=== PATIENT | male | born 1960 | race Caucasian/White ===

== ENCOUNTER → 2023-06-22 | Outpatient (CLI) | payer BC ==
[~2023-06-22] VITALS: Ht 177.8 cm; Wt 99.8 kg
[~2023-06-22] MED LIST: ASPI81CH33 PO; ATOR40TA75 PO; FINA5TAB2 PO; LIDOCAINE 1% MDV 20ML VIAL As Ordered ONE; LIDOCAINE W/EPINEPHRINE 1% 20ML VIAL As Ordered ONE; LISI5TAB11 PO; METO1TAB33 PO; MIDAZOLAM INJ 2MG/2ML VIAL As Ordered ONE; NS 1,000 ML IV SCH; OMEP40CA5 PO; ceFAZolin 2 GM/D5W 50 ML IV BAG As Ordered ONE; ceFAZolin SOD 2 GM in IV 1 EA IV ONE; fentaNYL 100 MCG/2 ML INJECTION As Ordered ONE
[2023-06-22 08:30] VITALS: TEMP 97.3
[2023-06-22 11:45] VITALS: BP 152/85; O2SAT 97
== END ==
LOC: M IRPRO 08:19
PROVIDERS: ATTEND Specialist
DX: C64.9 Malignant neoplasm of unspecified kidney, except renal pelvis (principal)
CPT/HCPCS: 36561; 99152; 99153; J0690; J2250; J3010

== ENCOUNTER 2024-02-14 00:16 | Inpatient (IN) | payer BC, MEDICARE ==
[~2024-02-14 00:16] MED LIST changes: +B-122500 PO; +GABA-1171 PO; +LEVO-89 PO; +LEVO25TA5 PO; -LIDOCAINE 1% MDV 20ML VIAL As Ordered ONE; -LIDOCAINE W/EPINEPHRINE 1% 20ML VIAL As Ordered ONE; -MIDAZOLAM INJ 2MG/2ML VIAL As Ordered ONE; +NOXI1TAB PO; -NS 1,000 ML IV SCH; +ONDA-284 PO; +PRED20TA PO; +TRIA1OI TOP; +VITA40TA PO; -ceFAZolin 2 GM/D5W 50 ML IV BAG As Ordered ONE; -ceFAZolin SOD 2 GM in IV 1 EA IV ONE; -fentaNYL 100 MCG/2 ML INJECTION As Ordered ONE
[2024-02-14 02:45] VITALS: BP 128/75; TEMP 97.5; O2SAT 100
[2024-02-14] MEDS ORDERED: MOM 30ML SUSPENSION UDC PO PRN (03:00)
[2024-02-14] MEDS ORDERED: ACETAMINOPHEN TAB 650MG DOSE (2X325MG) PO PRN (03:00)
[2024-02-14] MEDS ORDERED: SYNT100T PO (04:54)
[2024-02-14 05:13] LABS: VENOUS BASE EXCESS -12.8 (-2.0-2.0); VENOUS HCO3 14.5 MMOL/L (23.0-27.0); VENOUS O2 SATURATION 86.7 % (60.0-80.0); VENOUS PARTIAL PRESSURE O2 53.2 mmHg (30.0-50.0); VENOUS PH 7.189 UNITS (7.330-7.430); VENOUS STANDARD HCO3 14.2 MMOL/L; VENOUS TOTAL CO2 15.7 MMOL/L (24.0-28.0)
[2024-02-14 05:24] LABS: HEMATOCRIT 28.8 % (42.0-52.0); HEMOGLOBIN 9.3 g/dl (13.5-17.5); MEAN CORPUSCULAR HEMOGLOBIN 32.1 pg (27.0-33.0); MEAN CORPUSCULAR HGB CONC 32.3 g/dl (32.0-36.5); MEAN CORPUSCULAR VOLUME 99.3 fl (80.0-96.0); PLATELET COUNT, AUTOMATED 197 10^3/uL (150-450); WHITE BLOOD COUNT 11.5 10^3/uL (4.0-10.0)
[2024-02-14 05:41] LABS: CORTISOL AM 23.3 UG/DL (4.3-22.4); INR 1.13; PROTHROMBIN TIME 14.2 SECONDS (12.5-14.5)
[2024-02-14 05:49] LABS: ALBUMIN 3.8 G/DL (3.2-5.2); BILIRUBIN,TOTAL 0.5 MG/DL (0.3-1.2); CREATININE FOR GFR 5.65 MG/DL (0.70-1.30); GLOMERULAR FILTRATION RATE 10.8 (>49); POTASSIUM SERUM 6.3 MMOL/L (3.5-5.1)
[2024-02-14] MEDS ORDERED: GABA-1171 PO (06:10)
[2024-02-14] MEDS: ALBUTEROL SULFATE 2.5MG/0.5ML INH NEB SOLN NEB ONE (06:11)
[2024-02-14] MEDS ORDERED: CETI-24 PO (06:12)
[2024-02-14] MEDS ORDERED: ASPI81TA26 PO (06:12)
[2024-02-14] MEDS ORDERED: SODIUM BICARBONATE 8.4% INJ 50ML SYRINGE IV STA (06:13)
[2024-02-14] MEDS ORDERED: HOME MED LIST COMPLETE! XX SCH (06:15)
[2024-02-14] MEDS: DEXTROSE 50% 50ML SYRINGE IV STA (06:36)
[2024-02-14] MEDS: HumuLIN R (REGULAR) INSULIN (NovoLIN R) **100U/ML** PER UNIT IV STA (06:37)
[2024-02-14] MEDS: CALCIUM GLUCONATE 1,000 MG in D5W MINI-BAG PLUS 100 ML IV SCH (06:37)
[2024-02-14] MEDS: PATIROMER SORBITEX CALCIUM 8.4 GM POWDER PACKET (VELTASSA) PO ONE (06:50)
[2024-02-14] MEDS: LEVOTHYROXINE 100MCG TABLET (0.1MG) PO SCH (06:51)
[2024-02-14 08:00] VITALS: BP 133/70; TEMP 97.7; O2SAT 93
[2024-02-14] MEDS: SODIUM BICARBONATE 8.4% INJ 50ML SYRINGE IV STA (08:28)
[2024-02-14] MEDS: SODIUM BICARBONATE 150 MEQ in D5W 1,000 ML IV SCH (08:29)
[2024-02-14] MEDS: HEPARIN SOD (PORCINE) 5000UNITS/ML 1ML VIAL/SYRINGE SQ SCH ×2 (08:33→13:47)
[2024-02-14] MEDS: DOCUSATE SODIUM 100MG CAPSULE PO SCH (08:37)
[2024-02-14 08:58] LABS: CALCIUM LEVEL 8.7 MG/DL (8.3-10.6); CREATININE FOR GFR 5.5 MG/DL (0.70-1.30); GLOMERULAR FILTRATION RATE 11.2 (>49); POTASSIUM SERUM 5.7 MMOL/L (3.5-5.1)
[2024-02-14 12:00] VITALS: BP 134/75; TEMP 97.7; O2SAT 100
[2024-02-14 12:47] LABS: CREATININE FOR GFR 5.35 MG/DL (0.70-1.30); GLOMERULAR FILTRATION RATE 11.5 (>49); POTASSIUM SERUM 4.7 MMOL/L (3.5-5.1)
[2024-02-14 13:13] LABS: PHOSPHORUS LEVEL 4.9 MG/DL (2.4-5.1)
[2024-02-14] MEDS: METOPROLOL SUCC (TopROL XL) 100MG *XL* TAB PO SCH (13:48)
[2024-02-14] MEDS: CETIRIZINE (ZyrTEC) 10 MG TAB PO SCH (13:48)
[2024-02-14] MEDS: FINASTERIDE 5MG TAB PO SCH (13:48)
[2024-02-14] MEDS: ASPIRIN 81MG ENTERIC TABLET PO SCH (13:48)
[2024-02-14] MEDS: PANTOPRAZOLE 40MG TAB (PROTONIX) PO SCH (13:48)
[2024-02-14] MEDS: ATORVASTATIN 20 MG TAB PO SCH (13:49)
[2024-02-14 16:00] VITALS: BP 115/63; TEMP 97.5; O2SAT 98
[2024-02-14 20:59] VITALS: BP 119/57; TEMP 98.7; O2SAT 99
[2024-02-14] MEDS: GABAPENTIN 100 MG CAP PO SCH (21:21)
[2024-02-15] VITALS (7 sets, daily range): BP systolic 111–142; BP diastolic 57–73; TEMP 97.5–98.4; O2SAT 96–98
[2024-02-15 05:31] LABS: HEMATOCRIT 23.7 % (42.0-52.0); HEMOGLOBIN 7.9 g/dl (13.5-17.5); MEAN CORPUSCULAR HEMOGLOBIN 32.1 pg (27.0-33.0); MEAN CORPUSCULAR HGB CONC 33.3 g/dl (32.0-36.5); MEAN CORPUSCULAR VOLUME 96.3 fl (80.0-96.0); PLATELET COUNT, AUTOMATED 170 10^3/uL (150-450); RED BLOOD COUNT 2.46 10^6/uL (4.30-6.10); WHITE BLOOD COUNT 7.8 10^3/uL (4.0-10.0)
[2024-02-15 06:00] LABS: CREATININE FOR GFR 4.96 MG/DL (0.70-1.30); GLOMERULAR FILTRATION RATE 12.6 (>49); POTASSIUM SERUM 4.1 MMOL/L (3.5-5.1)
[2024-02-15 13:27] LABS: APPEARANCE, URINE HAZY (CLEAR); BACTERIA, URINE AUTO 1+ (NEGATIVE); BILIRUBIN, URINE AUTO NEGATIVE (NEGATIVE); BLOOD, URINE BLOOD 2+ (NEGATIVE); COLOR, URINE YELLOW (YELLOW); GLUCOSE, URINE (UA) AUTO NEGATIVE (NEGATIVE); KETONE, URINE AUTO NEGATIVE (NEGATIVE); LEUKOCYTE ESTERASE, URINE AUTO 3+ (NEGATIVE); NITRITE, URINE AUTO NEGATIVE (NEGATIVE); PROTEIN, URINE AUTO 1+ mg/dL (NEGATIVE); RBC, URINE AUTO 46 /HPF (0-3); SPECIFIC GRAVITY URINE AUTO 1.009 (1.002-1.035); SQUAMOUS EPITHELIAL CELL UR AU 0 /HPF (0-6); UROBILINOGEN, URINE AUTO 0.2 mg/dL (0.0-2.0); WBC, URINE AUTO 92 /HPF (0-3)
[2024-02-15 13:57] LABS: HEMATOCRIT 24.9 % (42.0-52.0); HEMOGLOBIN 8.5 g/dl (13.5-17.5)
[2024-02-16 03:51] VITALS: BP 148/80; TEMP 97.1; O2SAT 97
[2024-02-16 06:03] LABS: HEMATOCRIT 23.2 % (42.0-52.0); HEMOGLOBIN 7.8 g/dl (13.5-17.5); MEAN CORPUSCULAR HGB CONC 33.6 g/dl (32.0-36.5); MEAN CORPUSCULAR VOLUME 95.1 fl (80.0-96.0); PLATELET COUNT, AUTOMATED 162 10^3/uL (150-450); RED BLOOD COUNT 2.44 10^6/uL (4.30-6.10); WHITE BLOOD COUNT 6.5 10^3/uL (4.0-10.0)
[2024-02-16 06:27] LABS: CALCIUM LEVEL 7.4 MG/DL (8.3-10.6); CREATININE FOR GFR 4.5 MG/DL (0.70-1.30); GLOMERULAR FILTRATION RATE 14.1 (>49); POTASSIUM SERUM 3.5 MMOL/L (3.5-5.1)
[2024-02-16 07:38] VITALS: BP 150/70; TEMP 97.2; O2SAT 95
[2024-02-16 08:03] VITALS: BP 150/70
== END 2024-02-16 11:47 | disposition home or self-care (01) | DRG 425 ==
LOC: M PCU 02:40
PROVIDERS: ADMIT Hospitalist; ATTEND Internal Medicine
DX: E87.5 Hyperkalemia (principal); N17.9 Acute kidney failure, unspecified; E87.20 Acidosis, unspecified; G62.0 Drug-induced polyneuropathy; D64.81 Anemia due to antineoplastic chemotherapy; C64.1 Malignant neoplasm of right kidney, except renal pelvis; I12.9 Hypertensive chronic kidney disease with stage 1 through stage 4 chronic kidney disease, or unspecified chronic kidney disease; N40.0 Benign prostatic hyperplasia without lower urinary tract symptoms; I25.10 Atherosclerotic heart disease of native coronary artery without angina pectoris; E03.9 Hypothyroidism, unspecified; E78.5 Hyperlipidemia, unspecified; T45.1X5A Adverse effect of antineoplastic and immunosuppressive drugs, initial encounter; D63.1 Anemia in chronic kidney disease; N18.9 Chronic kidney disease, unspecified; M16.10 Unilateral primary osteoarthritis, unspecified hip; Z95.1 Presence of aortocoronary bypass graft; Z87.891 Personal history of nicotine dependence; Z79.82 Long term (current) use of aspirin; Z90.5 Acquired absence of kidney; Z79.890 Hormone replacement therapy; Z79.899 Other long term (current) drug therapy; Z79.69 Long term (current) use of other immunomodulators and immunosuppressants

== ENCOUNTER → 2024-04-06 | Outpatient (REF) | payer MEDICARE, BC ==
[~2024-04-06] MED LIST changes: +ASPI81TA26 PO; +CETI-24 PO; +SYNT100T PO
[2024-04-06 13:18] LABS: INR 0.89; PROTHROMBIN TIME 12.4 SECONDS (12.5-14.5)
== END ==
LOC: M LAB REF 12:31
PROVIDERS: ATTEND Internal Medicine Nephrology
DX: R31.9 Hematuria, unspecified (principal)

== ENCOUNTER → 2024-04-27 | Outpatient (CLI) | payer MEDICARE ==
[~2024-04-27] MED LIST changes: +LIDOCAINE 1% MDV 20ML VIAL As Ordered ONE; +MIDAZOLAM INJ 2MG/2ML VIAL As Ordered ONE; +fentaNYL 100 MCG/2 ML INJECTION As Ordered ONE
[2024-04-27 07:10] VITALS: TEMP 97
[2024-04-27 09:25] VITALS: BP 152/87; O2SAT 99
== END ==
LOC: M IRPRO 06:57
PROVIDERS: ATTEND Internal Medicine Nephrology
DX: N17.9 Acute kidney failure, unspecified (principal); R80.9 Proteinuria, unspecified; Z90.5 Acquired absence of kidney; Z53.8 Procedure and treatment not carried out for other reasons
CPT/HCPCS: 50200; 76942; 99152; 99153; J2250; J3010

== ENCOUNTER → 2024-05-25 | Outpatient (CLI) | payer MEDICARE ==
[~2024-05-25] MED LIST changes: +ACETAMINOPHEN 325 MG TAB PO PRN; +NS (Normal Saline) 0.9% 1,000 ML IV SCH; +PERCOCET 5MG/325MG TAB PO PRN
[2024-05-25 10:14] LABS: HEMATOCRIT 34.1 % (42.0-52.0); HEMOGLOBIN 11.2 g/dl (13.5-17.5); MEAN CORPUSCULAR HEMOGLOBIN 32.5 pg (27.0-33.0); MEAN CORPUSCULAR HGB CONC 32.8 g/dl (32.0-36.5); MEAN CORPUSCULAR VOLUME 98.8 fl (80.0-96.0); PLATELET COUNT, AUTOMATED 233 10^3/uL (150-450); RED BLOOD COUNT 3.45 10^6/uL (4.30-6.10)
[2024-05-25 10:25] LABS: INR 0.88; PROTHROMBIN TIME 12.2 SECONDS (12.5-14.5)
[2024-05-25 10:28] VITALS: TEMP 97
[2024-05-25 14:30] VITALS: BP 130/67; O2SAT 98
== END ==
LOC: M IRPRO 09:44
PROVIDERS: ATTEND Radiology Diagnostic Radiology
DX: N28.89 Other specified disorders of kidney and ureter (principal)
CPT/HCPCS: 36415; 50200; 77012; 85027; 85610; 88300; J1642

== ENCOUNTER → 2024-12-24 | Outpatient (CLI) | payer MEDICARE ==
[~2024-12-24] MED LIST changes: -ACETAMINOPHEN 325 MG TAB PO PRN; +LEVO100T5 PO; +LEVO150T7 PO; -LIDOCAINE 1% MDV 20ML VIAL As Ordered ONE; +LISI10TA22 PO; -MIDAZOLAM INJ 2MG/2ML VIAL As Ordered ONE; -NS (Normal Saline) 0.9% 1,000 ML IV SCH; +OMEP40CA4 PO; -PERCOCET 5MG/325MG TAB PO PRN; +PRED10TA2 PO; +SODI650T PO; -fentaNYL 100 MCG/2 ML INJECTION As Ordered ONE
== END ==
LOC: M RAD 10:41
PROVIDERS: ATTEND Specialist
DX: C64.9 Malignant neoplasm of unspecified kidney, except renal pelvis (principal)

== ENCOUNTER → 2025-04-01 | Outpatient (CLI) | payer MEDICARE ==
[~2025-04-01] MED LIST changes: +LEVO200T4
== END ==
LOC: M RAD 12:04
PROVIDERS: ATTEND Specialist
DX: C64.9 Malignant neoplasm of unspecified kidney, except renal pelvis (principal)

== ENCOUNTER → 2025-05-17 | Outpatient (CLI) | payer MEDICARE ==
[~2025-05-17] VITALS: Ht 177.8 cm; Wt 100.0 kg
[2025-05-17 08:40] VITALS: TEMP 96.8
[2025-05-17] MEDS: ceFAZolin SODIUM 2 GM in DEXTROSE 5% (D5W) ADV/MINI-BAG 50 ML IV ONE (09:27)
[2025-05-17] MEDS: NS (Normal Saline) 0.9% 1,000 ML IV SCH (09:29)
[2025-05-17] MEDS: MIDAZOLAM INJ 2 MG/2 ML VIAL IV PRN (09:29)
[2025-05-17] MEDS: LIDOCAINE 1% MDV 20 ML VIAL SC SCH (09:35)
[2025-05-17 10:18] VITALS: BP 114/74; O2SAT 98
== END ==
LOC: M IRPRO 08:59
PROVIDERS: ATTEND Radiology Diagnostic Radiology
DX: C64.9 Malignant neoplasm of unspecified kidney, except renal pelvis (principal)
CPT/HCPCS: 36590; 99152; J0688; J2250; J3010